=== PATIENT | female | born 1985 | race Caucasian/White ===

== ENCOUNTER → 2021-08-23 | Outpatient (CLI) | payer BC ==
[2021-08-23 11:39] LABS: HEMOGLOBIN 13.7 gm/dl (12.3-15.3); RED BLOOD COUNT 4.53 M/UL (4.00-5.10); WHITE BLOOD COUNT 9.8 K/UL (4.5-11.0)
[2021-08-23 12:45] LABS: BUN/CREATININE RATIO 12 (0-10)
[2021-08-24 08:13] LABS: RHEUMATOID ARTHRITIS FACTOR <10.0 IU/mL (0.0-13.9); VITAMIN D, 25-HYDROXY 30.6 ng/mL (30.0-100.0)
== END ==
LOC: LAB 10:54
PROVIDERS: Nurse Practitioner Family
DX: M25.50 Pain in unspecified joint (principal); D89.9 Disorder involving the immune mechanism, unspecified; R76.8 Other specified abnormal immunological findings in serum; M79.10 Myalgia, unspecified site
CPT/HCPCS: 36415; 80053; 82550; 82728; 83520; 84439; 84443; 85025; 85652; 86140; 86200; 86431

== ENCOUNTER → 2022-06-26 | Outpatient (CLI) | payer BC ==
[2022-06-26 10:25] LABS: HEMOGLOBIN 13.5 gm/dl (12.3-15.3); RED BLOOD COUNT 4.51 M/UL (4.00-5.10); WHITE BLOOD COUNT 12.8 K/UL (4.5-11.0)
[2022-06-26 11:01] LABS: BUN/CREATININE RATIO 14 (0-10)
[2022-06-27 14:14] LABS: RHEUMATOID ARTHRITIS FACTOR <10.0 IU/mL (<14.0)
[2022-06-29 13:13] LABS: ANA DIRECT Negative (Negative); ATYPICAL PANCA <1:20 titer (Neg:<1:20); CYTOPLASMIC (C-ANCA) <1:20 titer (Neg:<1:20); PERINUCLEAR (P-ANCA) <1:20 titer (Neg:<1:20)
[2022-07-02 08:16] LABS: ANTIMYELOPEROXIDASE (MPO) ABS <0.2; ANTIPROTEINASE 3 (PR-3) ABS <0.2
== END ==
LOC: LAB 09:59
PROVIDERS: Nurse Practitioner Family
DX: M25.50 Pain in unspecified joint (principal); R20.0 Anesthesia of skin; R76.8 Other specified abnormal immunological findings in serum; D89.9 Disorder involving the immune mechanism, unspecified; M79.10 Myalgia, unspecified site; R20.2 Paresthesia of skin; R25.1 Tremor, unspecified; E53.8 Deficiency of other specified B group vitamins
CPT/HCPCS: 80053; 82607; 83516; 84443; 85025; 85652; 86038; 86140; 86431